=== PATIENT | male | born 1955 | race Caucasian/White ===

== ENCOUNTER 2017-09-17 07:01 | Inpatient (IN) | payer BC ==
[2017-09-17 07:48] LABS: ADD MAN DIFF? NO
[2017-09-17 07:58] LABS: WHITE BLOOD COUNT 7.3 10^3/ul (4.8-10.8)
[2017-09-17 07:58] LABS: BASOPHIL # 0.1 10^3/ul (0.0-0.1); BASOPHILS % 1.5 % (0.0-2.0); EOSINOPHILS # 0.3 10^3/ul (0.0-0.5); EOSINOPHILS % 3.9 % (0.0-7.0); HEMOGLOBIN 9.4 g/dl (14.0-18.0); LYMPHOCYTES # 2.2 10^3/ul (0.8-2.9); LYMPHOCYTES % 30.6 % (15.0-51.0); MEAN CORPUSCULAR HEMOGLOBIN 19.7 pg (29.0-33.0); MEAN CORPUSCULAR HGB CONC 29.4 g/dl (32.0-37.0); MEAN CORPUSCULAR VOLUME 67.2 fl (82.0-101.0); MEAN PLATELET VOLUME 9.9 fl (7.4-10.4); MONOCYTE # 0.5 10^3/ul (0.3-0.9); NEUTROPHIL # 4.1 10^3/ul (1.6-7.5); NEUTROPHILS % 56.7 % (39.0-77.0); NUCLEATED RED BLOOD CELLS% 0.6 /100WBC (0.0-0.0); PLATELET COUNT 291 10^3/UL (140-415); RED BLOOD COUNT 4.76 10^6/ul (4.70-6.10); RED CELL DISTRIBUTION WIDTH 16.2 % (11.5-14.5)
[2017-09-17] MEDS ORDERED: SOD CHLORIDE 0.45% 1,000 ML IV (08:00)
[2017-09-17 08:01] LABS: HOLD TRANSMISSIONS 1
[2017-09-17 08:10] LABS: INR 0.94; PROTIME 12.7 Sec (11.9-14.9)
[2017-09-17 08:11] LABS: PARTIAL THROMBOPLASTIN TIME 25.3 Sec (25.0-35.0)
[2017-09-17 08:15] LABS: ALANINE AMINOTRANSFERASE 30 IU/L (13-69); ALBUMIN/GLOBULIN RATIO 1.25; ALKALINE PHOSPHATASE 58 IU/L (42-121); ANION GAP 17 (8-16); ASPARTATE AMINO TRANSFERASE 32 IU/L (15-46); BILIRUBIN,INDIRECT 0.1 mg/dl (0-1.1); BILIRUBIN,TOTAL 0.1 mg/dl (0.2-1.3); CARBON DIOXIDE 28 mmol/L (21-31); CHLORIDE 103 mmol/L (97-110); CHOL/HDL RATIO 4.3 RATIO; CHOLESTEROL 156 mg/dl (100-200); GLUCOSE 207 mg/dl (70-220); HDL CHOLESTEROL 36 mg/dl (30-78); LDL CHOLESTEROL,CALCULATED 78 mg/dl; TOTAL PROTEIN 7.2 g/dl (6.1-8.1); TRIGLYCERIDES 211 mg/dl (0-149)
[2017-09-17 08:21] LABS: BLOOD UREA NITROGEN 16 mg/dl (7-20); CALCIUM 8.8 mg/dl (8.4-10.2); CREATININE 0.64 mg/dl (0.61-1.24); POTASSIUM 4.6 mmol/L (3.5-5.1); SODIUM 143 mmol/L (135-144)
[2017-09-17] MEDS ORDERED: IODIXANOL LOCM 100 ML BTL ×4 (08:37→12:51)
[2017-09-17] MEDS ORDERED: LIDOCAINE 1% (MDV) 20 ML INJ ×3 (08:37→14:19)
[2017-09-17] MEDS ORDERED: VERAPAMIL 5 MG INJ (08:56)
[2017-09-17] MEDS ORDERED: HEPARIN 1000 UNITS/ML 10 ML INJ ×2 (08:56→12:51)
[2017-09-17] MEDS ORDERED: NITROGLYCERIN (IC) 100 MCG/ML INJ (08:56)
[2017-09-17] MEDS ORDERED: FENTAnyl 50 MCG/ML VIAL (08:59)
[2017-09-17] MEDS ORDERED: MIDAZOLAM 1 MG/ML 2 ML INJ (09:00)
[2017-09-17] MEDS ORDERED: CLOPIDOGREL 300 MG TAB (09:59)
[2017-09-17] MEDS ORDERED: ASPIRIN 325 MG TAB (09:59)
[2017-09-17] MEDS ORDERED: IOHEXOL 350MG/ML 50 ML BTL (10:43)
[2017-09-17] MEDS ORDERED: morphine 10 MG INJ (11:20)
[2017-09-17] MEDS ORDERED: ZOLPIDEM 5 MG TAB PO (11:30)
[2017-09-17] MEDS ORDERED: DIAZEPAM 2 MG TAB PO (11:30)
[2017-09-17] MEDS ORDERED: AL HYDROX/MG HYDROX/SIMETH 30 ML CUP PO (11:30)
[2017-09-17] MEDS ORDERED: ONDANSETRON 4 MG INJ (12:31)
[2017-09-17] MEDS ORDERED: HEPARIN 1000 UNITS/NS (A-LINE) 1,000 ML (12:51)
[2017-09-17] MEDS ORDERED: BIVALIRUDIN 250MG /NS 50 ML 50 ML IVPB (13:09)
[2017-09-17] MEDS: FAMOTIDINE 20 MG TAB PO (14:44)
[2017-09-17] MEDS: DIPHENHYDRAMINE 50 MG CAP PO (14:44)
[2017-09-17] MEDS: DIAZEPAM 5 MG TAB PO (14:44)
[2017-09-17] MEDS: SOD CHLORIDE 0.9% 1,000 ML IV (15:15)
[2017-09-17] MEDS ORDERED: DEXTROSE 50% 50 ML SYRINGE IV ×2 (15:30)
[2017-09-17] MEDS ORDERED: GLUCOSE GEL 15 GRAM TUBE PO ×2 (15:30)
[2017-09-17] MEDS ORDERED: GLUCAGON 1 MG INJ IM (15:30)
[2017-09-17] MEDS ORDERED: GLUCOSE GEL 15 GRAM TUBE BUCCAL (15:30)
[2017-09-17] MEDS: morphine 2 MG INJ IV ×2 (16:30→19:20)
[2017-09-17] MEDS: INSULIN ASPART [NOVOLOG] 3 ML PEN SC ×3 (16:51→20:39)
[2017-09-17] MEDS ORDERED: traMADol 50 MG TAB PO (17:00)
[2017-09-17] MEDS ORDERED: INSULIN ASPART [NOVOLOG] 3 ML PEN SC (17:35)
[2017-09-17] MEDS: ONDANSETRON 4 MG INJ IV (19:20)
[2017-09-17] MEDS: METOPROLOL (XL) 50 MG TAB PO (20:35)
[2017-09-17] MEDS: ATORVASTATIN 80 MG TAB PO (20:35)
[2017-09-17] MEDS: RANITIDINE 150 MG TAB PO (20:35)
[2017-09-17] MEDS: INSULIN GLARGINE [LANtus] 3 ML PEN SC (20:39)
[2017-09-18] MEDS: morphine 2 MG INJ IV ×4 (00:14→18:34)
[2017-09-18] MEDS: ACCU-CHEK XX (00:51)
[2017-09-18] MEDS ORDERED: ACCU-CHEK XX (02:00)
[2017-09-18 06:01] LABS: ADD MAN DIFF? NO
[2017-09-18 06:13] LABS: BASOPHIL # 0.1 10^3/ul (0.0-0.1); BASOPHILS % 0.9 % (0.0-2.0); EOSINOPHILS # 0.1 10^3/ul (0.0-0.5); EOSINOPHILS % 0.7 % (0.0-7.0); HEMATOCRIT 32.3 % (42.0-52.0); HEMOGLOBIN 9.4 g/dl (14.0-18.0); LYMPHOCYTES # 1.6 10^3/ul (0.8-2.9); LYMPHOCYTES % 17.8 % (15.0-51.0); MEAN CORPUSCULAR HEMOGLOBIN 19.7 pg (29.0-33.0); MEAN CORPUSCULAR HGB CONC 29.1 g/dl (32.0-37.0); MEAN CORPUSCULAR VOLUME 67.7 fl (82.0-101.0); MEAN PLATELET VOLUME 9.9 fl (7.4-10.4); MONOCYTE # 0.8 10^3/ul (0.3-0.9); MONOCYTES % 8.4 % (0.0-11.0); NEUTROPHIL # 6.5 10^3/ul (1.6-7.5); NEUTROPHILS % 71.9 % (39.0-77.0); PLATELET COUNT 295 10^3/UL (140-415); RED BLOOD COUNT 4.77 10^6/ul (4.70-6.10); RED CELL DISTRIBUTION WIDTH 15.9 % (11.5-14.5)
[2017-09-18 06:37] LABS: ANION GAP 15 (8-16); BLOOD UREA NITROGEN 12 mg/dl (7-20); CALCIUM 8.7 mg/dl (8.4-10.2); CARBON DIOXIDE 28 mmol/L (21-31); CHLORIDE 105 mmol/L (97-110); CREATINE KINASE 1113 IU/L (23-200); CREATININE 0.64 mg/dl (0.61-1.24); GLUCOSE 188 mg/dl (70-220); POTASSIUM 4.1 mmol/L (3.5-5.1); SODIUM 144 mmol/L (135-144)
[2017-09-18 06:40] LABS: CK INDEX 5.4
[2017-09-18] MEDS: INSULIN ASPART [NOVOLOG] 3 ML PEN SC ×7 (07:48→20:34)
[2017-09-18] MEDS: ONDANSETRON 4 MG INJ IV ×2 (08:33→12:30)
[2017-09-18] MEDS: ASPIRIN (EC) 81 MG TAB PO (08:37)
[2017-09-18] MEDS: LOSARTAN 50 MG TAB PO (08:37)
[2017-09-18] MEDS: METOPROLOL (XL) 50 MG TAB PO ×2 (08:37→21:04)
[2017-09-18] MEDS: LINAGLIPTIN 5 MG TABLET PO (08:37)
[2017-09-18] MEDS: CLOPIDOGREL 75 MG TAB PO (08:37)
[2017-09-18 12:03] LABS: CREATINE KINASE 972 IU/L (23-200)
[2017-09-18] MEDS: ISOSORBIDE DINITRATE 10 MG TAB PO ×2 (12:06→21:00)
[2017-09-18] MEDS: OXYCODONE/ACETAMINOPHEN (5/325) TAB PO (12:06)
[2017-09-18 12:11] LABS: CK INDEX 4.7
[2017-09-18] MEDS ORDERED: NITROGLYCERIN (SL) 0.4 MG TAB SL (13:30)
[2017-09-18 16:34] LABS: CREATINE KINASE 892 IU/L (23-200)
[2017-09-18 16:47] LABS: CK INDEX 4.5
[2017-09-18] MEDS ORDERED: INSULIN DETEMIR [LEVEMIR] 3ML CART SC (20:00)
[2017-09-18] MEDS: INSULIN GLARGINE [LANtus] 3 ML PEN SC (20:33)
[2017-09-18] MEDS: ATORVASTATIN 80 MG TAB PO (20:37)
[2017-09-18] MEDS: RANITIDINE 150 MG TAB PO (20:37)
[2017-09-19] MEDS: morphine 2 MG INJ IV (00:22)
[2017-09-19] MEDS: ACCU-CHEK XX ×5 (01:16→23:08)
[2017-09-19 06:11] LABS: CREATINE KINASE 1002 IU/L (23-200)
[2017-09-19 06:16] LABS: CK INDEX 4.2
[2017-09-19] MEDS: INSULIN ASPART [NOVOLOG] 3 ML PEN SC ×2 (07:31→07:34)
[2017-09-19] MEDS: INSULIN GLARGINE [LANtus] 3 ML PEN SC (07:52)
[2017-09-19] MEDS: ASPIRIN (EC) 81 MG TAB PO (08:09)
[2017-09-19] MEDS: CLOPIDOGREL 75 MG TAB PO (08:09)
[2017-09-19] MEDS: LINAGLIPTIN 5 MG TABLET PO (08:09)
[2017-09-19] MEDS: METOPROLOL (XL) 50 MG TAB PO (08:10)
[2017-09-19] MEDS: ISOSORBIDE DINITRATE 10 MG TAB PO (08:10)
[2017-09-19] MEDS: LOSARTAN 50 MG TAB PO (08:10)
[2017-09-19] MEDS: OXYCODONE/ACETAMINOPHEN (5/325) TAB PO (08:43)
[2017-09-19] MEDS ORDERED: MIDAZOLAM 1 MG/ML 2 ML INJ ×4 (10:31→11:50)
[2017-09-19] MEDS ORDERED: LIDOCAINE 1% (MDV) 20 ML INJ (10:31)
[2017-09-19] MEDS ORDERED: FENTAnyl 50 MCG/ML VIAL (10:31)
[2017-09-19] MEDS ORDERED: IODIXANOL LOCM 100 ML BTL (10:31)
[2017-09-19] MEDS ORDERED: NITROGLYCERIN (IC) 100 MCG/ML INJ (11:25)
[2017-09-19] MEDS ORDERED: PHENYLephrine (100 MCG/ML) 5ML SYG (11:39)
[2017-09-19] MEDS ORDERED: ETOMIDATE 20 MG INJ (11:46)
[2017-09-19] MEDS: ALTEPLASE (CATHFLO) 2 MG INJ CATHETER (12:00)
[2017-09-19] MEDS ORDERED: AMIODARONE 150 MG INJ (12:08)
[2017-09-19] MEDS ORDERED: niCARdipine 25 MG INJ (12:16)
[2017-09-19 12:43] LABS: AADO2 Arterial 297.8 mmHg (7.0-24.0); Arterial Base Excess -10.1 mmol/L (-3.0-3); Arterial Blood Gas Oxygen Sat 99.1 mmHG (95.0-98.0); Arterial COHb 0.7 % (0.0-3.0); Arterial Fraction of Oxyhgb 97.8 % (93.0-99.0); Arterial MetHb 0.6 % (0.0-1.5); Arterial Total Hemglobin 7.9 g/dl (12.0-18.0); Arterial pCO2 35.7 mmhg (35-45); MODE VENT - AC; Site A-Line
[2017-09-19] MEDS: SOD CHLORIDE 0.9% 1,000 ML IV (13:15)
[2017-09-19] MEDS: AMIODARONE 900MG/D5W DRIP 500 ML IV ×2 (13:15→16:08)
[2017-09-19] MEDS ORDERED: DIGOXIN 500 MCG INJ IV (13:18)
[2017-09-19] MEDS ORDERED: AL HYDROX/MG HYDROX/SIMETH 30 ML CUP PO (13:30)
[2017-09-19] MEDS ORDERED: ACETAMINOPHEN 325 MG TAB PO (13:30)
[2017-09-19] MEDS ORDERED: ONDANSETRON 4 MG INJ IV (13:30)
[2017-09-19 14:47] LABS: ADD MAN DIFF? NO
[2017-09-19 14:49] LABS: WHITE BLOOD COUNT 20.5 10^3/ul (4.8-10.8)
[2017-09-19 14:49] LABS: ABNORMAL IP MESSAGE 1; BASOPHIL # 0.1 10^3/ul (0.0-0.1); BASOPHILS % 0.3 % (0.0-2.0); EOSINOPHILS # 0.1 10^3/ul (0.0-0.5); EOSINOPHILS % 0.2 % (0.0-7.0); HEMATOCRIT 24.5 % (42.0-52.0); LYMPHOCYTES # 1.4 10^3/ul (0.8-2.9); MEAN CORPUSCULAR HEMOGLOBIN 19.8 pg (29.0-33.0); MEAN CORPUSCULAR HGB CONC 28.6 g/dl (32.0-37.0); MEAN CORPUSCULAR VOLUME 69.2 fl (82.0-101.0); MEAN PLATELET VOLUME 10.1 fl (7.4-10.4); MONOCYTE # 1.2 10^3/ul (0.3-0.9); MONOCYTES % 5.7 % (0.0-11.0); NEUTROPHIL # 17.6 10^3/ul (1.6-7.5); NEUTROPHILS % 85.9 % (39.0-77.0); NUCLEATED RED BLOOD CELLS% 0.1 /100WBC (0.0-0.0); PLATELET COUNT 366 10^3/UL (140-415); POSITIVE DIFF @See below; RED BLOOD COUNT 3.54 10^6/ul (4.70-6.10); RED CELL DISTRIBUTION WIDTH 16.1 % (11.5-14.5)
[2017-09-19 15:15] LABS: INR 5.41
[2017-09-19 15:21] LABS: PARTIAL THROMBOPLASTIN TIME 92.1 Sec (25.0-35.0); PROTIME 51.3 Sec (11.9-14.9)
[2017-09-19] MEDS: HEPARIN 25000 UNITS/250 ML 250 ML IV (15:40)
[2017-09-19] MEDS: TICAGRELOR 90 MG TABLET PO (16:53)
[2017-09-19] MEDS: DOPamine-D5W 1.6 MG/ML 250 ML IV (17:16)
[2017-09-19] MEDS: AMIODARONE 900 MG in DEXTROSE 5% 482 ML IV (17:17)
[2017-09-19] MEDS: PROPOFOL 100 ML IV (17:27)
[2017-09-19] MEDS: SOD CHLORIDE 0.9% 250 ML IV (18:00)
[2017-09-19 18:46] LABS: ABNORMAL IP MESSAGE 1; MEAN CORPUSCULAR HEMOGLOBIN 19.9 pg (29.0-33.0); MEAN CORPUSCULAR HGB CONC 29.5 g/dl (32.0-37.0); MEAN CORPUSCULAR VOLUME 67.5 fl (82.0-101.0); MEAN PLATELET VOLUME 10.4 fl (7.4-10.4); NUCLEATED RED BLOOD CELLS% 0.3 /100WBC (0.0-0.0); PLATELET COUNT 366 10^3/UL (140-415); POSITIVE DIFF @See below; RED BLOOD COUNT 3.11 10^6/ul (4.70-6.10); RED CELL DISTRIBUTION WIDTH 16.4 % (11.5-14.5)
[2017-09-19 18:46] LABS: WHITE BLOOD COUNT 19.1 10^3/ul (4.8-10.8)
[2017-09-19 18:49] LABS: ADD MAN DIFF? YES; HEMOGLOBIN 6.2 g/dl (14.0-18.0)
[2017-09-19] MEDS ORDERED: DEXTROSE 50% 50 ML SYRINGE IV ×2 (19:00)
[2017-09-19 19:13] LABS: CREATINE KINASE 3027 IU/L (23-200)
[2017-09-19 19:23] LABS: ANISOCYTOSIS 3+ (0-0); BAND NEUTROPHILS #M 0.1 10^3/ul (0.0-0.6); BAND NEUTROPHILS % (M) 1 % (0-4); GIANT THROMBO% (M) 2 % (0-0); LYMPHOCYTES #M 0.9 10^3/ul (0.8-2.9); LYMPHOCYTES % (M) 5 % (15-51); MICROCYTOSIS 3+ (0-0); MONOCYTE #M 0.7 10^3/ul (0.3-0.9); MONOCYTES % (M) 4 % (0-11); PLATELET ESTIMATE NORMAL; POIKILOCYTOSIS 2+ (0-0); POLYCHROMASIA 1+ (0-0); REACTIVE LYMPHOCYTES #M 0.1 10^3/ul (0.0-0.0); REACTIVE LYMPHOCYTES% (M) 1 % (0-0); SEGMENTED NEUTROPHILS (M) % 89 % (39-77); SMUDGE%M 4 % (0-0)
[2017-09-19] MEDS: EPTIFIBATIDE 100 ML IV (19:25)
[2017-09-19] MEDS: SODIUM BICARBONATE (IV ADD) 100 MEQ in DEXTROSE 5% 1,000 ML IV (19:44)
[2017-09-19] MEDS: INSULIN HUMAN REGULAR 100 UNIT in SOD CHLORIDE 0.9% 99 ML IV (19:52)
[2017-09-19] MEDS: MIDAZOLAM (DRIP) 50 mg/50 mL 50 ML IV (20:29)
[2017-09-19] MEDS: RANITIDINE 150 MG TAB PO (21:15)
[2017-09-19] MEDS: ATORVASTATIN 80 MG TAB PO (21:15)
[2017-09-19 22:18] LABS: AADO2 Arterial 130.1 mmHg (7.0-24.0); Arterial Base Excess -10.6 mmol/L (-3.0-3); Arterial Blood Gas Oxygen Sat 98.6 mmHG (95.0-98.0); Arterial COHb 0.3 % (0.0-3.0); Arterial Fraction of Oxyhgb 97.6 % (93.0-99.0); Arterial HCO3 15.1 mmol/L (22.0-26.0); Arterial MetHb 0.7 % (0.0-1.5); Arterial Total Hemglobin 7.5 g/dl (12.0-18.0); Arterial pCO2 32.1 mmhg (35-45); MODE VENT - AC; Site A-Line
[2017-09-19] MEDS: ACETAMINOPHEN 325 MG TAB PO (22:39)
[2017-09-20] MEDS: ACCU-CHEK XX ×24 (00:05→22:57)
[2017-09-20] MEDS: DOPamine-D5W 1.6 MG/ML 250 ML IV ×3 (00:07→19:09)
[2017-09-20] MEDS: PROPOFOL 100 ML IV ×2 (00:08→17:30)
[2017-09-20 00:09] LABS: GLUCOSE 347 mg/dl (70-220)
[2017-09-20] MEDS: PIPER-TAZO 3.375 GM IV (PMX) 100 ML IVPB ×4 (00:11→18:49)
[2017-09-20 00:12] LABS: LACTIC ACID 4.5 mmol/L (0.5-2.0)
[2017-09-20 00:52] LABS: CK INDEX 3.5; CREATINE KINASE 4398 IU/L (23-200)
[2017-09-20] MEDS: INSULIN HUMAN REGULAR 100 UNIT in SOD CHLORIDE 0.9% 99 ML IV ×3 (00:53→12:49)
[2017-09-20] MEDS: MIDAZOLAM (DRIP) 50 mg/50 mL 50 ML IV ×4 (01:52→21:52)
[2017-09-20] MEDS: SODIUM BICARBONATE (IV ADD) 100 MEQ in SOD CHLORIDE 0.45% 1,000 ML IV ×2 (01:56→23:30)
[2017-09-20] MEDS: SOD CHLORIDE 0.9% 250 ML IV (02:30)
[2017-09-20 02:42] LABS: ADD MAN DIFF? NO; BASOPHILS % 0.2 % (0.0-2.0); EOSINOPHILS % 0.1 % (0.0-7.0); HEMATOCRIT 22.3 % (42.0-52.0); HEMOGLOBIN 7.1 g/dl (14.0-18.0); LYMPHOCYTES # 0.7 10^3/ul (0.8-2.9); LYMPHOCYTES % 4.7 % (15.0-51.0); MEAN CORPUSCULAR HEMOGLOBIN 22.9 pg (29.0-33.0); MEAN CORPUSCULAR HGB CONC 31.8 g/dl (32.0-37.0); MEAN CORPUSCULAR VOLUME 71.9 fl (82.0-101.0); MEAN PLATELET VOLUME 10.4 fl (7.4-10.4); MONOCYTES % 6.2 % (0.0-11.0); NEUTROPHIL # 13.6 10^3/ul (1.6-7.5); NEUTROPHILS % 88.4 % (39.0-77.0); NUCLEATED RED BLOOD CELLS # 0.1 10^3/ul (0.0-0.0); NUCLEATED RED BLOOD CELLS% 0.4 /100WBC (0.0-0.0); PLATELET COUNT 299 10^3/UL (140-415); RED CELL DISTRIBUTION WIDTH 21.6 % (11.5-14.5)
[2017-09-20 02:42] LABS: WHITE BLOOD COUNT 15.4 10^3/ul (4.8-10.8)
[2017-09-20 05:32] LABS: AADO2 Arterial 141.4 mmHg (7.0-24.0); Arterial Base Excess -5.6 mmol/L (-3.0-3); Arterial Blood Gas Oxygen Sat 98.6 mmHG (95.0-98.0); Arterial COHb 0.3 % (0.0-3.0); Arterial Fraction of Oxyhgb 97.5 % (93.0-99.0); Arterial HCO3 19.3 mmol/L (22.0-26.0); Arterial MetHb 0.8 % (0.0-1.5); Arterial Total Hemglobin 9.2 g/dl (12.0-18.0); Arterial pCO2 35.5 mmhg (35-45); MODE VENT - AC; Site A-Line
[2017-09-20 05:55] LABS: PLATELET COUNT 277 10^3/UL (140-415)
[2017-09-20 06:08] LABS: ANION GAP 13 (8-16); BLOOD UREA NITROGEN 21 mg/dl (7-20); CALCIUM 6.6 mg/dl (8.4-10.2); CARBON DIOXIDE 19 mmol/L (21-31); CHLORIDE 107 mmol/L (97-110); CREATININE 1.21 mg/dl (0.61-1.24); GLUCOSE 184 mg/dl (70-220); SODIUM 136 mmol/L (135-144)
[2017-09-20 06:15] LABS: CREATINE KINASE 3059 IU/L (23-200)
[2017-09-20 06:16] LABS: CK INDEX 3.3
[2017-09-20 06:33] LABS: INR 1.45; PROTIME 17.9 Sec (11.9-14.9); PT RATIO 1.4
[2017-09-20 07:07] LABS: ADD MAN DIFF? NO
[2017-09-20 07:14] LABS: WHITE BLOOD COUNT 14.8 10^3/ul (4.8-10.8)
[2017-09-20 07:14] LABS: ABNORMAL IP MESSAGE 1; BASOPHILS % 0.3 % (0.0-2.0); EOSINOPHILS % 0.1 % (0.0-7.0); HEMATOCRIT 25.2 % (42.0-52.0); HEMOGLOBIN 8.2 g/dl (14.0-18.0); LYMPHOCYTES % 6.7 % (15.0-51.0); MEAN CORPUSCULAR HGB CONC 32.5 g/dl (32.0-37.0); MEAN CORPUSCULAR VOLUME 73.7 fl (82.0-101.0); MEAN PLATELET VOLUME 10.7 fl (7.4-10.4); MONOCYTE # 1.3 10^3/ul (0.3-0.9); MONOCYTES % 8.9 % (0.0-11.0); NEUTROPHIL # 12.4 10^3/ul (1.6-7.5); NEUTROPHILS % 83.7 % (39.0-77.0); NUCLEATED RED BLOOD CELLS # 0.1 10^3/ul (0.0-0.0); NUCLEATED RED BLOOD CELLS% 0.3 /100WBC (0.0-0.0); PLATELET COUNT 254 10^3/UL (140-415); POSITIVE DIFF @See below; RED BLOOD COUNT 3.42 10^6/ul (4.70-6.10); RED CELL DISTRIBUTION WIDTH 22.3 % (11.5-14.5)
[2017-09-20 07:19] LABS: RETICULOCYTE COUNT # 0.092 X10^6 (0.020-0.110); RETICULOCYTE COUNT % 2.6 % (0.5-1.5)
[2017-09-20 07:19] LABS: RETICULOCYTE RBC 3.51
[2017-09-20] MEDS: ACETAMINOPHEN 325 MG TAB PO ×2 (07:25→17:31)
[2017-09-20 07:28] LABS: PARTIAL THROMBOPLASTIN TIME 68.3 Sec (25.0-35.0)
[2017-09-20 07:29] LABS: IRON 25 ug/dl (35-150)
[2017-09-20 07:34] LABS: D-DIMER 7850.17 ng/ml (<460); THROMBIN TIME > 100.0 SEC (13.8-19.1)
[2017-09-20 07:37] LABS: PARTIAL THROMBOPLASTIN TIME 72.9 Sec (25.0-35.0)
[2017-09-20 07:38] LABS: % IRON SATURATION 9 % SAT (22-52); TOTAL IRON BINDING CAPACITY 289 ug/dl (241-421)
[2017-09-20] MEDS: morphine 2 MG INJ IV (08:05)
[2017-09-20 09:15] LABS: ERYTHROCYTE SEDIMENTATION RATE 14 mm/Hr (0-20)
[2017-09-20 09:19] LABS: FIBRIN SPLIT PRODUCT >10 and <40 ug/ml (<10)
[2017-09-20] MEDS: POTASSIUM CHLORIDE 100 ML IVPB ×2 (09:23→10:54)
[2017-09-20] MEDS: ASPIRIN (EC) 81 MG TAB PO (09:36)
[2017-09-20] MEDS: TICAGRELOR 90 MG TABLET PO ×2 (13:28→21:19)
[2017-09-20 14:01] LABS: MAGNESIUM 1.2 mg/dl (1.7-2.5)
[2017-09-20 14:08] LABS: POST-TRANSFUSION BILIRUBIN 0.1 mg/dl
[2017-09-20 14:12] LABS: LACTIC ACID 2.1 mmol/L (0.5-2.0)
[2017-09-20 14:17] LABS: LACTATE DEHYDROGENASE 4033 IU/L (313-618)
[2017-09-20 14:30] LABS: PARTIAL THROMBOPLASTIN TIME 81.3 Sec (25.0-35.0)
[2017-09-20 14:39] LABS: ANION GAP 12 (8-16); BLOOD UREA NITROGEN 22 mg/dl (7-20); CALCIUM 6.4 mg/dl (8.4-10.2); CARBON DIOXIDE 20 mmol/L (21-31); CHLORIDE 108 mmol/L (97-110); CREATININE 1.12 mg/dl (0.61-1.24); GLUCOSE 127 mg/dl (70-220); POTASSIUM 3.8 mmol/L (3.5-5.1); SODIUM 136 mmol/L (135-144)
[2017-09-20 14:43] LABS: THYROID STIMULATING HORMONE 0.076 MIU/L (0.465-4.680)
[2017-09-20 14:47] LABS: FERRITIN 31.5 ng/ml (11.1-264.0)
[2017-09-20] MEDS ORDERED: MAGNESIUM SULFATE 4 GM/100 ML 100 ML IVPB (15:00)
[2017-09-20 15:17] LABS: FOLATE 7.9 ng/ml (2.8-20.0)
[2017-09-20] MEDS: CALCIUM GLUCONATE 10% 2 GM in DEXTROSE 5% 100 ML IVPB (15:29)
[2017-09-20] MEDS: MAGNESIUM SULFATE 4 GM/100 ML 100 ML IVPB (15:48)
[2017-09-20 16:01] LABS: CARCINOEMBRYONIC ANTIGEN 1.5 ng/ml (0.0-5.0)
[2017-09-20] MEDS ORDERED: CALCIUM GLUCONATE 10% 1 GM in DEXTROSE 5% 100 ML IVPB (16:30)
[2017-09-20 16:34] LABS: ADD MAN DIFF? NO
[2017-09-20 16:36] LABS: WHITE BLOOD COUNT 11.1 10^3/ul (4.8-10.8)
[2017-09-20 16:36] LABS: BASOPHILS % 0.3 % (0.0-2.0); HEMATOCRIT 21.9 % (42.0-52.0); HEMOGLOBIN 7.4 g/dl (14.0-18.0); LYMPHOCYTES # 0.8 10^3/ul (0.8-2.9); LYMPHOCYTES % 7.3 % (15.0-51.0); MEAN CORPUSCULAR HEMOGLOBIN 24.3 pg (29.0-33.0); MEAN CORPUSCULAR HGB CONC 33.8 g/dl (32.0-37.0); MEAN PLATELET VOLUME 9.8 fl (7.4-10.4); MONOCYTE # 0.8 10^3/ul (0.3-0.9); MONOCYTES % 7.2 % (0.0-11.0); NEUTROPHIL # 9.4 10^3/ul (1.6-7.5); NEUTROPHILS % 84.9 % (39.0-77.0); PLATELET COUNT 190 10^3/UL (140-415); RED BLOOD COUNT 3.04 10^6/ul (4.70-6.10); RED CELL DISTRIBUTION WIDTH 21.7 % (11.5-14.5)
[2017-09-20 17:12] LABS: CREATINE KINASE 2237 IU/L (23-200)
[2017-09-20 17:14] LABS: CK INDEX 2.3
[2017-09-20] MEDS: SOD CHLORIDE 0.9% 250 ML IV* (18:00)
[2017-09-20] MEDS: HEPARIN 25000 UNITS/250 ML 250 ML IV (19:16)
[2017-09-20] MEDS ORDERED: VANCOMYCIN IV PER PHARMACY XX (19:30)
[2017-09-20 20:47] LABS: PARTIAL THROMBOPLASTIN TIME 55.5 Sec (25.0-35.0)
[2017-09-20 21:14] LABS: ADD UMIC YES; UR ASCORBIC ACID NEGATIVE (NEGATIVE); UR BILIRUBIN (Dip) NEGATIVE (NEGATIVE); UR BLOOD (Dip) 2+ mg/dL (NEGATIVE); UR CLARITY CLEAR (CLEAR); UR COLOR STRAW (YELLOW); UR GLUCOSE (Dip) NEGATIVE (NEGATIVE); UR KETONES (Dip) NEGATIVE (NEGATIVE); UR LEUKOCYTE ESTERASE (Dip) NEGATIVE Leu/ul (NEGATIVE); UR MUCUS FEW /HPF (NONE SEEN); UR NITRITE (Dip) NEGATIVE (NEGATIVE); UR RBC 0 /HPF (0-5); UR SPECIFIC GRAVITY (Dip) 1.009 (1.003-1.030); UR TOTAL PROTEIN (Dip) NEGATIVE (NEGATIVE); UR UROBILINOGEN (Dip) NEGATIVE (NEGATIVE); UR WBC 2 /HPF (0-5)
[2017-09-20] MEDS: ATORVASTATIN 80 MG TAB PO (21:20)
[2017-09-20] MEDS: RANITIDINE 150 MG TAB PO (21:20)
[2017-09-20] MEDS: VANCOMYCIN 1.75 GM in SOD CHLORIDE 0.9% 500 ML IVPB (21:33)
[2017-09-21] MEDS: ACCU-CHEK XX ×24 (00:07→23:14)
[2017-09-21] MEDS: PIPER-TAZO 3.375 GM IV (PMX) 100 ML IVPB ×5 (00:45→23:57)
[2017-09-21] MEDS: ACETAMINOPHEN 325 MG TAB PO ×2 (00:45→10:23)
[2017-09-21 03:28] LABS: ADD MAN DIFF? NO
[2017-09-21 03:36] LABS: WHITE BLOOD COUNT 9.5 10^3/ul (4.8-10.8)
[2017-09-21 03:36] LABS: BASOPHILS % 0.3 % (0.0-2.0); EOSINOPHILS % 0.1 % (0.0-7.0); HEMATOCRIT 22.4 % (42.0-52.0); HEMOGLOBIN 7.6 g/dl (14.0-18.0); LYMPHOCYTES # 0.7 10^3/ul (0.8-2.9); LYMPHOCYTES % 7.6 % (15.0-51.0); MEAN CORPUSCULAR HEMOGLOBIN 25.1 pg (29.0-33.0); MEAN CORPUSCULAR HGB CONC 33.9 g/dl (32.0-37.0); MEAN CORPUSCULAR VOLUME 73.9 fl (82.0-101.0); MEAN PLATELET VOLUME 10.1 fl (7.4-10.4); MONOCYTE # 0.7 10^3/ul (0.3-0.9); MONOCYTES % 7.2 % (0.0-11.0); NEUTROPHILS % 84.3 % (39.0-77.0); PLATELET COUNT 190 10^3/UL (140-415); RED BLOOD COUNT 3.03 10^6/ul (4.70-6.10); RED CELL DISTRIBUTION WIDTH 21.3 % (11.5-14.5)
[2017-09-21 03:49] LABS: ALANINE AMINOTRANSFERASE 263 IU/L (13-69); ALBUMIN 2.4 g/dl (3.3-4.9); ALKALINE PHOSPHATASE 45 IU/L (42-121); ASPARTATE AMINO TRANSFERASE 318 IU/L (15-46); BILIRUBIN,INDIRECT 0.2 mg/dl (0-1.1); BILIRUBIN,TOTAL 0.2 mg/dl (0.2-1.3); TOTAL PROTEIN 4.5 g/dl (6.1-8.1)
[2017-09-21 03:50] LABS: LACTIC ACID 1.2 mmol/L (0.5-2.0)
[2017-09-21 03:51] LABS: ANION GAP 8 (8-16); BLOOD UREA NITROGEN 19 mg/dl (7-20); CALCIUM 6.7 mg/dl (8.4-10.2); CARBON DIOXIDE 23 mmol/L (21-31); CHLORIDE 110 mmol/L (97-110); GLUCOSE 112 mg/dl (70-220); MAGNESIUM 2.4 mg/dl (1.7-2.5); PHOSPHORUS 3.6 mg/dl (2.5-4.9); POTASSIUM 3.3 mmol/L (3.5-5.1); SODIUM 138 mmol/L (135-144)
[2017-09-21 03:52] LABS: CREATINE KINASE 1238 IU/L (23-200)
[2017-09-21 04:03] LABS: CK INDEX 1.9
[2017-09-21 04:29] LABS: PARTIAL THROMBOPLASTIN TIME 75.6 Sec (25.0-35.0)
[2017-09-21] MEDS: MIDAZOLAM (DRIP) 50 mg/50 mL 50 ML IV ×3 (04:31→23:14)
[2017-09-21] MEDS: PROPOFOL 100 ML IV ×2 (05:10→17:30)
[2017-09-21] MEDS: SODIUM BICARBONATE (IV ADD) 100 MEQ in SOD CHLORIDE 0.45% 1,000 ML IV ×2 (06:30→21:18)
[2017-09-21] MEDS: POTASSIUM CHLORIDE 100 ML IVPB ×2 (08:10→09:48)
[2017-09-21 09:10] LABS: AADO2 Arterial 105.3 mmHg (7.0-24.0); Arterial Base Excess -0.7 mmol/L (-3.0-3); Arterial Blood Gas Oxygen Sat 98.6 mmHG (95.0-98.0); Arterial COHb 0.3 % (0.0-3.0); Arterial Fraction of Oxyhgb 97.7 % (93.0-99.0); Arterial HCO3 22.2 mmol/L (22.0-26.0); Arterial MetHb 0.6 % (0.0-1.5); Arterial pCO2 29.4 mmhg (35-45); MODE VENT - AC; Site A-Line
[2017-09-21] MEDS: ASPIRIN (EC) 81 MG TAB PO (09:10)
[2017-09-21] MEDS: TICAGRELOR 90 MG TABLET PO ×2 (09:11→21:14)
[2017-09-21] MEDS ORDERED: LIDOCAINE 1% (MDV) 20 ML INJ (09:55)
[2017-09-21] MEDS ORDERED: LIDOCAINE 2% (MDV) 20 ML INJ INJ (10:00)
[2017-09-21] MEDS: VANCOMYCIN 1 GM 250 ML IVPB ×2 (11:01→21:53)
[2017-09-21] MEDS: LIDOCAINE 1% (MDV) 20 ML INJ SC (13:34)
[2017-09-21] MEDS: INSULIN HUMAN REGULAR 100 UNIT in SOD CHLORIDE 0.9% 99 ML IV (16:32)
[2017-09-21 16:39] LABS: IMMEDIATE SPIN CROSSMATCH 1 7
[2017-09-21] MEDS: ATORVASTATIN 80 MG TAB PO (21:13)
[2017-09-21] MEDS: RANITIDINE 150 MG TAB PO (21:13)
[2017-09-22] MEDS: ACCU-CHEK XX ×24 (01:04→23:00)
[2017-09-22] MEDS: PROPOFOL 100 ML IV ×2 (05:20→17:08)
[2017-09-22] MEDS: PANTOPRAZOLE 40 MG INJ IV ×2 (05:48→17:14)
[2017-09-22] MEDS: PIPER-TAZO 3.375 GM IV (PMX) 100 ML IVPB ×4 (05:48→17:14)
[2017-09-22 06:08] LABS: ANION GAP 15 (8-16); BLOOD UREA NITROGEN 20 mg/dl (7-20); CALCIUM 6.9 mg/dl (8.4-10.2); CARBON DIOXIDE 21 mmol/L (21-31); CHLORIDE 112 mmol/L (97-110); CREATININE 0.87 mg/dl (0.61-1.24); GLUCOSE 120 mg/dl (70-220); MAGNESIUM 2.7 mg/dl (1.7-2.5); PHOSPHORUS 3.1 mg/dl (2.5-4.9); POTASSIUM 4.3 mmol/L (3.5-5.1); SODIUM 144 mmol/L (135-144)
[2017-09-22 07:59] LABS: CREATINE KINASE 819 IU/L (23-200)
[2017-09-22] MEDS: ASPIRIN (EC) 81 MG TAB PO (08:57)
[2017-09-22] MEDS: TICAGRELOR 90 MG TABLET PO ×2 (08:59→20:47)
[2017-09-22 10:19] LABS: VANCOMYCIN,TROUGH 9.5 ug/ml (10.0-20.0)
[2017-09-22] MEDS: FUROSEMIDE 20 MG INJ IV (10:27)
[2017-09-22] MEDS: VANCOMYCIN 1 GM 250 ML IVPB (10:28)
[2017-09-22 10:33] LABS: ADD MAN DIFF? NO
[2017-09-22 10:35] LABS: ABNORMAL IP MESSAGE 1; BASOPHIL # 0.1 10^3/ul (0.0-0.1); BASOPHILS % 0.5 % (0.0-2.0); EOSINOPHILS % 0.3 % (0.0-7.0); HEMATOCRIT 29.4 % (42.0-52.0); HEMOGLOBIN 9.6 g/dl (14.0-18.0); LYMPHOCYTES # 0.5 10^3/ul (0.8-2.9); LYMPHOCYTES % 4.8 % (15.0-51.0); MEAN CORPUSCULAR HEMOGLOBIN 26.2 pg (29.0-33.0); MEAN CORPUSCULAR HGB CONC 32.7 g/dl (32.0-37.0); MEAN CORPUSCULAR VOLUME 80.3 fl (82.0-101.0); MEAN PLATELET VOLUME 10.7 fl (7.4-10.4); MONOCYTE # 0.4 10^3/ul (0.3-0.9); MONOCYTES % 4.7 % (0.0-11.0); NEUTROPHIL # 8.3 10^3/ul (1.6-7.5); NEUTROPHILS % 89.1 % (39.0-77.0); POSITIVE DIFF @See below; RED BLOOD COUNT 3.66 10^6/ul (4.70-6.10); RED CELL DISTRIBUTION WIDTH 21.3 % (11.5-14.5)
[2017-09-22 10:35] LABS: WHITE BLOOD COUNT 9.4 10^3/ul (4.8-10.8)
[2017-09-22 10:39] LABS: PLATELET COUNT 163 10^3/UL (140-415)
[2017-09-22 11:11] LABS: CK-MB 8.29 ng/ml (0.0-2.4)
[2017-09-22] MEDS: BALSAM PERU/CASTOR OIL 60 GM TUBE TOP ×2 (17:14→20:48)
[2017-09-22] MEDS: RANITIDINE 150 MG TAB PO (20:46)
[2017-09-22] MEDS: ATORVASTATIN 80 MG TAB PO (20:46)
[2017-09-22] MEDS ORDERED: VANCOMYCIN 1.25 GM in SOD CHLORIDE 0.9% 250 ML IVPB (21:00)
[2017-09-22 21:31] LABS: OCCULT BLOOD STOOL POSITIVE (NEGATIVE)
[2017-09-22] MEDS: INSULIN HUMAN REGULAR 100 UNIT in SOD CHLORIDE 0.9% 99 ML IV (21:57)
[2017-09-23] MEDS: PIPER-TAZO 3.375 GM IV (PMX) 100 ML IVPB ×4 (00:08→18:15)
[2017-09-23] MEDS: ACCU-CHEK XX ×24 (01:00→23:00)
[2017-09-23] MEDS: INSULIN HUMAN REGULAR 100 UNIT in SOD CHLORIDE 0.9% 99 ML IV (01:42)
[2017-09-23] MEDS: SODIUM BICARBONATE (IV ADD) 100 MEQ in SOD CHLORIDE 0.45% 1,000 ML IV (01:54)
[2017-09-23] MEDS: PANTOPRAZOLE 40 MG INJ IV ×2 (05:07→18:14)
[2017-09-23] MEDS: PROPOFOL 100 ML IV ×2 (05:07→17:30)
[2017-09-23 05:39] LABS: ADD MAN DIFF? NO
[2017-09-23 05:44] LABS: ABNORMAL IP MESSAGE 1; BASOPHILS % 0.2 % (0.0-2.0); EOSINOPHILS % 0.1 % (0.0-7.0); HEMOGLOBIN 8.5 g/dl (14.0-18.0); LYMPHOCYTES # 0.4 10^3/ul (0.8-2.9); LYMPHOCYTES % 5.1 % (15.0-51.0); MEAN CORPUSCULAR HEMOGLOBIN 26.2 pg (29.0-33.0); MEAN CORPUSCULAR HGB CONC 32.7 g/dl (32.0-37.0); MEAN PLATELET VOLUME 10.6 fl (7.4-10.4); MONOCYTE # 0.3 10^3/ul (0.3-0.9); MONOCYTES % 3.6 % (0.0-11.0); NEUTROPHIL # 7.7 10^3/ul (1.6-7.5); NUCLEATED RED BLOOD CELLS # 0.1 10^3/ul (0.0-0.0); NUCLEATED RED BLOOD CELLS% 1.5 /100WBC (0.0-0.0); PLATELET COUNT 152 10^3/UL (140-415); POSITIVE DIFF @See below; RED BLOOD COUNT 3.25 10^6/ul (4.70-6.10); RED CELL DISTRIBUTION WIDTH 21.1 % (11.5-14.5)
[2017-09-23 05:44] LABS: WHITE BLOOD COUNT 8.4 10^3/ul (4.8-10.8)
[2017-09-23 06:04] LABS: ANION GAP 15 (8-16); BLOOD UREA NITROGEN 16 mg/dl (7-20); CARBON DIOXIDE 26 mmol/L (21-31); CHLORIDE 108 mmol/L (97-110); CREATININE 0.86 mg/dl (0.61-1.24); GLUCOSE 135 mg/dl (70-220); SODIUM 146 mmol/L (135-144)
[2017-09-23 06:41] LABS: NEUTROPHILS % 90.6 % (39.0-77.0)
[2017-09-23 08:20] LABS: AADO2 Arterial 91.6 mmHg (7.0-24.0); Allen Test ACCEPTAB; Arterial Base Excess 1.1 mmol/L (-3.0-3); Arterial Blood Gas Oxygen Sat 96.2 mmHG (95.0-98.0); Arterial COHb 0.3 % (0.0-3.0); Arterial Fraction of Oxyhgb 95.3 % (93.0-99.0); Arterial HCO3 23.9 mmol/L (22.0-26.0); Arterial MetHb 0.6 % (0.0-1.5); Arterial Total Hemglobin 9.4 g/dl (12.0-18.0); MODE VENT - AC; Site Right Radial
[2017-09-23] MEDS: ASPIRIN (EC) 81 MG TAB PO (08:25)
[2017-09-23] MEDS: TICAGRELOR 90 MG TABLET PO ×2 (08:26→21:23)
[2017-09-23] MEDS: BALSAM PERU/CASTOR OIL 60 GM TUBE TOP ×2 (09:09→21:22)
[2017-09-23 14:38] LABS: HAPTOGLOBIN 167 mg/dL (43-212)
[2017-09-23] MEDS: POTASSIUM CHLORIDE 100 ML IVPB ×2 (16:30→18:14)
[2017-09-23] MEDS: INSULIN ASPART [NOVOLOG] 3 ML PEN SC ×2 (17:00→21:00)
[2017-09-23] MEDS ORDERED: DEXTROSE 50% 50 ML SYRINGE IV ×2 (17:30)
[2017-09-23] MEDS ORDERED: GLUCOSE GEL 15 GRAM TUBE BUCCAL (17:30)
[2017-09-23] MEDS ORDERED: GLUCOSE GEL 15 GRAM TUBE PO ×2 (17:30)
[2017-09-23] MEDS ORDERED: GLUCAGON 1 MG INJ IM (17:30)
[2017-09-23] MEDS: INSULIN DETEMIR [LEVEMIR] 3ML CART SC (21:24)
[2017-09-23] MEDS: ATORVASTATIN 80 MG TAB PO (21:24)
[2017-09-23] MEDS: RANITIDINE 150 MG TAB PO (21:24)
[2017-09-24] MEDS: ACCU-CHEK XX
[2017-09-24] MEDS: INSULIN ASPART [NOVOLOG] 3 ML PEN SC ×6 (01:00→21:00)
[2017-09-24] MEDS: PIPER-TAZO 3.375 GM IV (PMX) 100 ML IVPB ×4 (04:42→17:55)
[2017-09-24] MEDS: PROPOFOL 100 ML IV (05:30)
[2017-09-24] MEDS: PANTOPRAZOLE 40 MG INJ IV ×2 (05:54→17:55)
[2017-09-24 06:07] LABS: ADD MAN DIFF? NO
[2017-09-24 06:14] LABS: BASOPHILS % 0.3 % (0.0-2.0); EOSINOPHILS # 0.1 10^3/ul (0.0-0.5); EOSINOPHILS % 0.8 % (0.0-7.0); HEMATOCRIT 30.7 % (42.0-52.0); HEMOGLOBIN 9.8 g/dl (14.0-18.0); LYMPHOCYTES # 0.7 10^3/ul (0.8-2.9); LYMPHOCYTES % 7.6 % (15.0-51.0); MEAN CORPUSCULAR HEMOGLOBIN 25.5 pg (29.0-33.0); MEAN CORPUSCULAR HGB CONC 31.9 g/dl (32.0-37.0); MEAN CORPUSCULAR VOLUME 79.9 fl (82.0-101.0); MEAN PLATELET VOLUME 10.1 fl (7.4-10.4); MONOCYTE # 0.6 10^3/ul (0.3-0.9); MONOCYTES % 6.2 % (0.0-11.0); NEUTROPHIL # 7.6 10^3/ul (1.6-7.5); NEUTROPHILS % 84.4 % (39.0-77.0); PLATELET COUNT 191 10^3/UL (140-415); RED BLOOD COUNT 3.84 10^6/ul (4.70-6.10)
[2017-09-24 06:40] LABS: ANION GAP 15 (8-16); BLOOD UREA NITROGEN 14 mg/dl (7-20); CALCIUM 7.6 mg/dl (8.4-10.2); CARBON DIOXIDE 25 mmol/L (21-31); CHLORIDE 110 mmol/L (97-110); CREATININE 0.78 mg/dl (0.61-1.24); GLUCOSE 104 mg/dl (70-220); POTASSIUM 3.4 mmol/L (3.5-5.1); SODIUM 147 mmol/L (135-144)
[2017-09-24] MEDS: ASPIRIN (EC) 81 MG TAB PO (08:16)
[2017-09-24] MEDS: TICAGRELOR 90 MG TABLET PO ×2 (08:17→21:42)
[2017-09-24] MEDS: BALSAM PERU/CASTOR OIL 60 GM TUBE TOP ×2 (08:45→21:44)
[2017-09-24] MEDS: INSULIN DETEMIR [LEVEMIR] 3ML CART SC ×2 (08:46→21:45)
[2017-09-24 08:50] LABS: AADO2 Arterial 96.5 mmHg (7.0-24.0); Allen Test ACCEPTAB; Arterial Base Excess -0.2 mmol/L (-3.0-3); Arterial Blood Gas Oxygen Sat 95.8 mmHG (95.0-98.0); Arterial COHb 0.3 % (0.0-3.0); Arterial HCO3 22.5 mmol/L (22.0-26.0); Arterial MetHb 0.5 % (0.0-1.5); Arterial Total Hemglobin 10.1 g/dl (12.0-18.0); Arterial pCO2 29.8 mmhg (35-45); MODE VENT - AC; Site Right Radial
[2017-09-24] MEDS: FUROSEMIDE 20 MG INJ IV (10:41)
[2017-09-24 11:26] LABS: AADO2 Arterial 94.5 mmHg (7.0-24.0); Allen Test ACCEPTAB; Arterial COHb 0.1 % (0.0-3.0); Arterial Fraction of Oxyhgb 95.4 % (93.0-99.0); Arterial HCO3 24.6 mmol/L (22.0-26.0); Arterial MetHb 0.5 % (0.0-1.5); Arterial pCO2 31.5 mmhg (35-45); Blood Gas PS 1031; MODE VENT - CPAP; Site Right Radial
[2017-09-24] MEDS: ALBUTEROL/IPRATROPIUM (NEB) 3 ML AMP HHN ×2 (13:25→19:40)
[2017-09-24] MEDS: IBUPROFEN 600 MG TAB GTB ×2 (15:45→22:34)
[2017-09-24] MEDS: POTASSIUM CHLORIDE 100 ML IVPB ×2 (16:51→17:55)
[2017-09-24] MEDS: OXYCODONE/ACETAMINOPHEN (5/325) TAB PO (17:59)
[2017-09-24] MEDS: DEXTROSE 10%/0.2% NACL 1,000 ML IV (20:00)
[2017-09-24] MEDS ORDERED: LOSARTAN 25 MG TAB PO (21:00)
[2017-09-24] MEDS: RANITIDINE 150 MG TAB PO (21:33)
[2017-09-24] MEDS: ATORVASTATIN 80 MG TAB PO (21:33)
[2017-09-24] MEDS: CYCLOBENZAPRINE 10 MG TAB PO (22:34)
[2017-09-25] MEDS ORDERED: AMIODARONE 150 MG INJ
[2017-09-25] MEDS ORDERED: MAGNESIUM SULFATE 1 GM/100 ML D5W IVPB
[2017-09-25] MEDS ORDERED: EPINEPHrine 0.1 MG/ML SYG
[2017-09-25] MEDS ORDERED: NA BICARBONATE 8.4% 50 ML SYG
[2017-09-25] MEDS ORDERED: SUCCINYLCHOLINE CHLORIDE 100 MG/5 ML SYG IV
[2017-09-25] MEDS ORDERED: DEXTROSE 50% 50 ML SYRINGE
[2017-09-25] MEDS: OXYCODONE/ACETAMINOPHEN (5/325) TAB PO (00:09)
[2017-09-25] MEDS: PIPER-TAZO 3.375 GM IV (PMX) 100 ML IVPB (00:12)
[2017-09-25] MEDS: INSULIN ASPART [NOVOLOG] 3 ML PEN SC (00:23)
[2017-09-25] MEDS: ALBUTEROL/IPRATROPIUM (NEB) 3 ML AMP HHN (01:21)
[2017-09-25] MEDS ORDERED: FUROSEMIDE 20 MG INJ (01:26)
[2017-09-25] MEDS ORDERED: LORAZEPAM 2 MG INJ (01:27)
[2017-09-25 01:35] LABS: AADO2 Arterial 570.6 mmHg (7.0-24.0); Allen Test ACCEPTAB; Arterial Base Excess -5.2 mmol/L (-3.0-3); Arterial Blood Gas Oxygen Sat 82.5 mmHG (95.0-98.0); Arterial COHb 0.3 % (0.0-3.0); Arterial Fraction of Oxyhgb 81.8 % (93.0-99.0); Arterial HCO3 25.4 mmol/L (22.0-26.0); Arterial MetHb 0.5 % (0.0-1.5); Arterial Total Hemglobin 13.7 g/dl (12.0-18.0); Arterial pCO2 76.2 mmhg (35-45); MODE MASK - NRB; Site Right Radial
[2017-09-25] MEDS ORDERED: AMIODARONE DRIP 1 MG/MIN X 6 HRS, THEN 0.5 MG/MIN X 18 HRS THEN DC IV (02:00)
[2017-09-25] MEDS ORDERED: MAGNESIUM SULFATE 1 GM/D5W 100 ML (02:08)
[2017-09-25] MEDS ORDERED: FUROSEMIDE 40 MG INJ IV (07:00)
[2017-09-25] MEDS ORDERED: LORAZEPAM 2 MG INJ IV (07:00)
[2017-09-25] MEDS ORDERED: SOD FERRIC GLUC COMPLX 125 MG in SOD CHLORIDE 0.9% 100 ML IVPB (17:00)
== END 2017-09-25 02:12 | disposition expired | DRG 270 ==
LOC: SDS 07:01 → ICU 09-19 13:58 → SDS 11:24 → REC 11:24 → ICU 14:32
PROC: 027036Z Dilation of Coronary Artery, One Artery with Three Drug-eluting Intraluminal Devices, Percutaneous Approach (ICD-10-PCS; principal; 2017-09-17 08:49)
PROC: 5A02210 Assistance with Cardiac Output using Balloon Pump, Continuous (ICD-10-PCS; 2017-09-17 08:49)
PROC: 027035Z Dilation of Coronary Artery, One Artery with Two Drug-eluting Intraluminal Devices, Percutaneous Approach (ICD-10-PCS; 2017-09-17 08:49)
PROC: 02713ZZ Dilation of Coronary Artery, Two Arteries, Percutaneous Approach (ICD-10-PCS; 2017-09-17 08:49)
PROC: 02C03ZZ Extirpation of Matter from Coronary Artery, One Artery, Percutaneous Approach (ICD-10-PCS; 2017-09-17 08:49)
PROC: 0BH17EZ Insertion of Endotracheal Airway into Trachea, Via Natural or Artificial Opening (ICD-10-PCS; 2017-09-17 08:49)
PROC: 5A1955Z Respiratory Ventilation, Greater than 96 Consecutive Hours (ICD-10-PCS; 2017-09-17 08:49)
PROC: 4A023N7 Measurement of Cardiac Sampling and Pressure, Left Heart, Percutaneous Approach (ICD-10-PCS; 2017-09-17 08:49)
PROC: B2051ZZ Plain Radiography of Left Heart using Low Osmolar Contrast (ICD-10-PCS; 2017-09-17 08:49)
PROC: B2011ZZ Plain Radiography of Multiple Coronary Arteries using Low Osmolar Contrast (ICD-10-PCS; 2017-09-17 08:49)
PROC: 3E03317 Introduction of Other Thrombolytic into Peripheral Vein, Percutaneous Approach (ICD-10-PCS; 2017-09-17 08:49)
PROC: 30233N1 Transfusion of Nonautologous Red Blood Cells into Peripheral Vein, Percutaneous Approach (ICD-10-PCS; 2017-09-17 08:49)
DX: I21.A9 Other myocardial infarction type (principal); J96.91 Respiratory failure, unspecified with hypoxia; R65.11 Systemic inflammatory response syndrome (SIRS) of non-infectious origin with acute organ dysfunction; J69.0 Pneumonitis due to inhalation of food and vomit; G93.40 Encephalopathy, unspecified; I47.2 Ventricular tachycardia; T82.855A Stenosis of coronary artery stent, initial encounter; E87.2 Acidosis; R57.0 Cardiogenic shock; E11.65 Type 2 diabetes mellitus with hyperglycemia; I25.10 Atherosclerotic heart disease of native coronary artery without angina pectoris; Z95.5 Presence of coronary angioplasty implant and graft; I10 Essential (primary) hypertension; E78.00 Pure hypercholesterolemia, unspecified; E78.5 Hyperlipidemia, unspecified; E87.6 Hypokalemia; E66.9 Obesity, unspecified; Z68.31 Body mass index [BMI] 31.0-31.9, adult; S30.22XA Contusion of scrotum and testes, initial encounter; Z87.891 Personal history of nicotine dependence; D64.9 Anemia, unspecified; M79.81 Nontraumatic hematoma of soft tissue
CPT/HCPCS: 31500; 36430; 36600; 70450; 71045; 76536; 76870; 80048; 80053; 80061; 80076; 80202; 81001; 82270; 82306; 82330; 82378; 82550; 82553; 82607; 82728; 82746; 82803; 82947; 82962; 83010; 83036; 83540; 83605; 83615; 83735; 84100; 84443; 84484; 84560; 85025; 85045; 85049; 85362; 85378; 85384; 85610; 85651; 85670; 85730; 86078; 86850; 86900; 86901; 86920; 87040; 87070; 87075; 87081; 87086; 87400; 89220; 92920; 92950; 93005; 93306; 93458; 94002; 94003; 94640; 94660; 94664; 94770